=== PATIENT | male | born 1940 | race Caucasian/White ===

== ENCOUNTER 2020-09-05 16:02 | Inpatient (IN) ==
[2020-09-05] MEDS ORDERED: polyethylene glycoL 3350 17 GM POWD.PACK PO PRN (18:35)
[2020-09-05] MEDS ORDERED: QUEtiapine Fumarate 25 MG TABLET PO SCH (21:00)
[2020-09-05] MEDS: Lactobacillus 1 EACH CAP.SPRINK PO SCH (22:57)
[2020-09-05] MEDS: Magnesium Oxide 400 MG TABLET PO SCH (22:58)
[2020-09-05] MEDS: *HR* OxyCODONE Immed Rel 5 MG TABLET PO PRN (22:58)
[2020-09-05] MEDS: Piperacillin/Tazobactam 3.375 GM in 0.9 % Sodium Chloride Mini Bag 100 ML IVPB SCH (22:59)
[2020-09-05] MEDS: Melatonin 3 MG TABLET PO PRN (22:59)
[2020-09-05] MEDS: Gabapentin 300 MG CAPSULE PO SCH (22:59)
[2020-09-05] MEDS: Apixaban 5 MG TABLET PO SCH (22:59)
[2020-09-06] MEDS: Budesonide/Formoterol 80/4.5 1 PUFF INH IH SCH ×3 (00:45→23:08)
[2020-09-06 06:42] LABS: Hematocrit 28.4 % (37.5-50.1); Hemoglobin 9.2 g/dL (12.9-16.9); Mean Corpuscular HGB Conc 32.4 g/dL (31.6-35.5); Mean Corpuscular Hemoglobin 29.3 pg (28.0-33.3); Mean Corpuscular Volume 90.4 fL (83.0-100.0); Mean Platelet Volume 11.2 fL (9.4-12.4); Platelet Count 203 K/mcL (140-400); Red Blood Count 3.14 M/mcL (4.19-5.50); Red Cell Distribution Width 15.2 % (11.5-14.5)
[2020-09-06 07:05] LABS: Calcium 8.2 mg/dL (8.6-10.3); Potassium 4.2 mEq/L (3.5-5.1)
[2020-09-06] MEDS ORDERED: QUEtiapine Fumarate 25 MG TABLET PO SCH (09:00)
[2020-09-06] MEDS: Piperacillin/Tazobactam 3.375 GM in 0.9 % Sodium Chloride Mini Bag 100 ML IVPB SCH (10:23)
[2020-09-06] MEDS: Apixaban 5 MG TABLET PO SCH ×2 (10:24→22:11)
[2020-09-06] MEDS: Magnesium Oxide 400 MG TABLET PO SCH ×2 (10:25→22:12)
[2020-09-06] MEDS: Cholecalciferol (D-3) 1,000 UNIT (25MCG) TABLET PO SCH (10:25)
[2020-09-06] MEDS: Gabapentin 300 MG CAPSULE PO SCH ×3 (10:25→22:12)
[2020-09-06] MEDS: Aspirin Enteric Coated 81 MG Tablet PO SCH (10:25)
[2020-09-06] MEDS: amLODIPine 5 MG TABLET PO SCH (10:25)
[2020-09-06] MEDS: Cyanocobalamin (B-12) 1,000 MCG TABLET PO SCH (10:25)
[2020-09-06] MEDS: Lactobacillus 1 EACH CAP.SPRINK PO SCH ×2 (10:25→22:11)
[2020-09-06] MEDS: Ertapenem 1,000 MG in 0.9 % Sodium Chloride Mini Bag 100 ML IVPB SCH (16:16)
[2020-09-06] MEDS: QUEtiapine Fumarate 25 MG TABLET PO SCH (22:10)
[2020-09-06] MEDS: Dexamethasone Sodium Phos/PF 10 MG/ML VIAL IVP SCH (22:12)
[2020-09-07] MEDS: Dexamethasone Sodium Phos/PF 10 MG/ML VIAL IVP SCH (09:17)
[2020-09-07] MEDS: Gabapentin 300 MG CAPSULE PO SCH ×3 (09:18→20:04)
[2020-09-07] MEDS: Cholecalciferol (D-3) 1,000 UNIT (25MCG) TABLET PO SCH (09:18)
[2020-09-07] MEDS: Apixaban 5 MG TABLET PO SCH ×2 (09:19→20:04)
[2020-09-07] MEDS: Magnesium Oxide 400 MG TABLET PO SCH ×2 (09:19→20:04)
[2020-09-07] MEDS: Aspirin Enteric Coated 81 MG Tablet PO SCH (09:19)
[2020-09-07] MEDS: Cyanocobalamin (B-12) 1,000 MCG TABLET PO SCH (09:19)
[2020-09-07] MEDS: Lactobacillus 1 EACH CAP.SPRINK PO SCH ×2 (09:19→20:03)
[2020-09-07] MEDS: QUEtiapine Fumarate 25 MG TABLET PO SCH ×2 (09:19→20:03)
[2020-09-07] MEDS: amLODIPine 5 MG TABLET PO SCH (09:20)
[2020-09-07] MEDS: Budesonide/Formoterol 80/4.5 1 PUFF INH IH SCH ×2 (09:34→23:33)
[2020-09-07] MEDS: Ertapenem 1,000 MG in 0.9 % Sodium Chloride Mini Bag 100 ML IVPB SCH (16:21)
[2020-09-08] MEDS ORDERED: GuaiFENesin Liq 200 MG/10 ML UDC PO PRN (01:34)
[2020-09-08] MEDS: GuaiFENesin Liq 200 MG/10 ML UDC PO SCH ×4 (02:01→21:16)
[2020-09-08] MEDS: QUEtiapine Fumarate 25 MG TABLET PO SCH ×2 (09:52→21:16)
[2020-09-08] MEDS: Magnesium Oxide 400 MG TABLET PO SCH ×2 (09:52→21:15)
[2020-09-08] MEDS: Lactobacillus 1 EACH CAP.SPRINK PO SCH ×2 (09:52→21:16)
[2020-09-08] MEDS: Aspirin Enteric Coated 81 MG Tablet PO SCH ×2 (09:53→10:11)
[2020-09-08] MEDS: Gabapentin 300 MG CAPSULE PO SCH ×3 (09:53→21:16)
[2020-09-08] MEDS: Cyanocobalamin (B-12) 1,000 MCG TABLET PO SCH (09:53)
[2020-09-08] MEDS: Apixaban 5 MG TABLET PO SCH ×2 (09:53→21:15)
[2020-09-08] MEDS: Cholecalciferol (D-3) 1,000 UNIT (25MCG) TABLET PO SCH (09:53)
[2020-09-08] MEDS: amLODIPine 5 MG TABLET PO SCH (09:53)
[2020-09-08] MEDS: Dexamethasone Sodium Phos/PF 10 MG/ML VIAL IVP SCH (09:54)
[2020-09-08 10:31] LABS: Hematocrit 24.4 % (37.5-50.1); Hemoglobin 7.8 g/dL (12.9-16.9); Immature Granulocytes % 0.4 % (0-4); Lymphocytes # 0.8 K/mcL (0.6-4.6); Lymphocytes % 16.1 %; Mean Corpuscular Hemoglobin 28.8 pg (28.0-33.3); Mean Platelet Volume 11.2 fL (9.4-12.4); Monocytes # 0.3 K/mcL (0.0-1.3); Monocytes % 5.6 %; Platelet Count 226 K/mcL (140-400); Red Blood Count 2.71 M/mcL (4.19-5.50); Red Cell Distribution Width 15.3 % (11.5-14.5); Segmented Neutrophils % 77.9 %; White Blood Count 5.2 K/mcL (4.3-11.1)
[2020-09-08] MEDS: Budesonide/Formoterol 80/4.5 1 PUFF INH IH SCH ×2 (10:44→22:14)
[2020-09-08 10:45] LABS: Calcium 8.3 mg/dL (8.6-10.3)
[2020-09-08] MEDS: Ertapenem 1,000 MG in 0.9 % Sodium Chloride Mini Bag 100 ML IVPB SCH (17:05)
[2020-09-09] MEDS: Melatonin 3 MG TABLET PO PRN (01:44)
[2020-09-09] MEDS: Benzonatate 100 MG CAPSULE PO PRN ×2 (02:12→12:48)
[2020-09-09] MEDS: Budesonide/Formoterol 80/4.5 1 PUFF INH IH SCH ×2 (11:13→21:19)
[2020-09-09] MEDS: Cholecalciferol (D-3) 1,000 UNIT (25MCG) TABLET PO SCH (12:43)
[2020-09-09] MEDS: Magnesium Oxide 400 MG TABLET PO SCH ×2 (12:46→21:08)
[2020-09-09] MEDS: QUEtiapine Fumarate 25 MG TABLET PO SCH ×2 (12:46→21:08)
[2020-09-09] MEDS: Lactobacillus 1 EACH CAP.SPRINK PO SCH ×2 (12:46→21:09)
[2020-09-09] MEDS: GuaiFENesin Liq 200 MG/10 ML UDC PO SCH ×3 (12:46→21:09)
[2020-09-09] MEDS: Dexamethasone Sodium Phos/PF 10 MG/ML VIAL IVP SCH (12:46)
[2020-09-09] MEDS: Apixaban 5 MG TABLET PO SCH ×2 (12:47→21:09)
[2020-09-09] MEDS: Aspirin Enteric Coated 81 MG Tablet PO SCH (12:47)
[2020-09-09] MEDS: amLODIPine 5 MG TABLET PO SCH (12:47)
[2020-09-09] MEDS: Cyanocobalamin (B-12) 1,000 MCG TABLET PO SCH (12:48)
[2020-09-09] MEDS: Gabapentin 400 MG CAPSULE PO SCH ×2 (16:31→21:09)
[2020-09-09] MEDS: Ertapenem 1,000 MG in 0.9 % Sodium Chloride Mini Bag 100 ML IVPB SCH (16:31)
[2020-09-09] MEDS: Gabapentin 300 MG CAPSULE PO SCH (17:55)
[2020-09-09] MEDS: *HR* OxyCODONE Immed Rel 5 MG TABLET PO PRN (21:09)
[2020-09-10] MEDS: Budesonide/Formoterol 80/4.5 1 PUFF INH IH SCH ×2 (10:10→22:51)
[2020-09-10] MEDS: GuaiFENesin Liq 200 MG/10 ML UDC PO SCH ×3 (10:25→22:40)
[2020-09-10] MEDS: Aspirin Enteric Coated 81 MG Tablet PO SCH (10:26)
[2020-09-10] MEDS: Cholecalciferol (D-3) 1,000 UNIT (25MCG) TABLET PO SCH (10:27)
[2020-09-10] MEDS: amLODIPine 5 MG TABLET PO SCH (10:28)
[2020-09-10] MEDS: Lactobacillus 1 EACH CAP.SPRINK PO SCH ×2 (10:28→22:23)
[2020-09-10] MEDS: Dexamethasone Sodium Phos/PF 10 MG/ML VIAL IVP SCH (10:28)
[2020-09-10] MEDS: Gabapentin 400 MG CAPSULE PO SCH (10:28)
[2020-09-10] MEDS: Apixaban 5 MG TABLET PO SCH ×2 (10:29→22:24)
[2020-09-10] MEDS: Magnesium Oxide 400 MG TABLET PO SCH ×2 (10:29→22:23)
[2020-09-10] MEDS: QUEtiapine Fumarate 25 MG TABLET PO SCH ×2 (10:29→22:24)
[2020-09-10] MEDS: Cyanocobalamin (B-12) 1,000 MCG TABLET PO SCH (10:46)
[2020-09-10 15:27] LABS: ABG Base Excess -1 mEq/L (-2 to 3); ABG HCO3 24 mEq/L (21-27); ABG Oxygen Saturation 94 % (95-98); ABG PCO2 42 mmHg (35-45); ABG PH 7.37 pH Units (7.32-7.45); ABG PO2 73 mmHg (85-104); ABG TCO2 25 mEq/L (20-26)
[2020-09-10] MEDS: Gabapentin 100 MG CAPSULE PO SCH ×2 (17:14→22:23)
[2020-09-11] MEDS: Budesonide/Formoterol 80/4.5 1 PUFF INH IH SCH ×2 (07:54→23:42)
[2020-09-11] MEDS: Dexamethasone Sodium Phos/PF 10 MG/ML VIAL IVP SCH ×2 (09:18→12:18)
[2020-09-11] MEDS: Gabapentin 100 MG CAPSULE PO SCH ×3 (09:18→21:55)
[2020-09-11] MEDS: Lactobacillus 1 EACH CAP.SPRINK PO SCH ×2 (09:18→21:54)
[2020-09-11] MEDS: Aspirin Enteric Coated 81 MG Tablet PO SCH (09:18)
[2020-09-11] MEDS: Apixaban 5 MG TABLET PO SCH ×2 (09:18→21:55)
[2020-09-11] MEDS: amLODIPine 5 MG TABLET PO SCH (09:19)
[2020-09-11] MEDS: Cholecalciferol (D-3) 1,000 UNIT (25MCG) TABLET PO SCH (09:19)
[2020-09-11] MEDS: Magnesium Oxide 400 MG TABLET PO SCH ×2 (09:19→21:54)
[2020-09-11] MEDS: GuaiFENesin Liq 200 MG/10 ML UDC PO SCH ×3 (09:19→21:55)
[2020-09-11] MEDS: Cyanocobalamin (B-12) 1,000 MCG TABLET PO SCH (09:19)
[2020-09-11] MEDS: QUEtiapine Fumarate 25 MG TABLET PO SCH (21:55)
[2020-09-12] MEDS: *HR* OxyCODONE Immed Rel 5 MG TABLET PO PRN (04:09)
[2020-09-12] MEDS: Lactobacillus 1 EACH CAP.SPRINK PO SCH ×2 (07:59→22:23)
[2020-09-12] MEDS: Aspirin Enteric Coated 81 MG Tablet PO SCH (07:59)
[2020-09-12] MEDS: Gabapentin 100 MG CAPSULE PO SCH ×3 (08:00→22:22)
[2020-09-12] MEDS: Benzonatate 100 MG CAPSULE PO PRN (08:00)
[2020-09-12] MEDS: amLODIPine 5 MG TABLET PO SCH (08:00)
[2020-09-12] MEDS: Magnesium Oxide 400 MG TABLET PO SCH ×2 (08:00→22:23)
[2020-09-12] MEDS: Cholecalciferol (D-3) 1,000 UNIT (25MCG) TABLET PO SCH ×2 (08:00→17:11)
[2020-09-12] MEDS: Cyanocobalamin (B-12) 1,000 MCG TABLET PO SCH (08:00)
[2020-09-12] MEDS: GuaiFENesin Liq 200 MG/10 ML UDC PO SCH ×3 (08:05→22:23)
[2020-09-12] MEDS ORDERED: *HR* LORazepam 2 MG/ML VIAL IM STA (10:01)
[2020-09-12] MEDS ORDERED: *HR* LORazepam 2 MG/ML VIAL IVP ONE ×2 (10:12→16:30)
[2020-09-12] MEDS: Budesonide/Formoterol 80/4.5 1 PUFF INH IH SCH ×2 (10:17→23:14)
[2020-09-12] MEDS: Levalbuterol Neb 1.25 MG/3 ML IH PRN (10:17)
[2020-09-12] MEDS: Dexamethasone Sodium Phos/PF 10 MG/ML VIAL IVP SCH (10:27)
[2020-09-12] MEDS: Apixaban 5 MG TABLET PO SCH ×2 (10:44→22:23)
[2020-09-12 10:50] LABS: Basophils % 0.2 %; Eosinophils # 0.1 K/mcL (0.0-0.6); Eosinophils % 0.7 %; Hematocrit 29.4 % (37.5-50.1); Hemoglobin 9.2 g/dL (12.9-16.9); Immature Granulocytes % 0.9 % (0-4); Lymphocytes # 1.9 K/mcL (0.6-4.6); Lymphocytes % 21.7 %; Mean Corpuscular HGB Conc 31.3 g/dL (31.6-35.5); Mean Corpuscular Hemoglobin 28.8 pg (28.0-33.3); Mean Corpuscular Volume 92.2 fL (83.0-100.0); Mean Platelet Volume 11.2 fL (9.4-12.4); Monocytes # 0.6 K/mcL (0.0-1.3); Monocytes % 7.1 %; Neutrophils # 6.2 K/mcL (1.6-8.9); Nucleated Red Blood Cells 0.2 /100 WBC (0); Platelet Count 368 K/mcL (140-400); Red Blood Count 3.19 M/mcL (4.19-5.50); Red Cell Distribution Width 15.7 % (11.5-14.5); Segmented Neutrophils % 69.4 %; White Blood Count 8.9 K/mcL (4.3-11.1)
[2020-09-12 11:09] LABS: Calcium 9.1 mg/dL (8.6-10.3); Potassium 4.9 mEq/L (3.5-5.1)
[2020-09-12] MEDS: Azithromycin 500 MG in 0.9 % Sodium Chloride 250 ML IVPB SCH (15:15)
[2020-09-12] MEDS ORDERED: *HR* LORazepam 2 MG/ML VIAL IM ONE ×2 (16:32→20:18)
[2020-09-12] MEDS ORDERED: Lidocaine 1% 20 ML MDV IM ONE (17:30)
[2020-09-12] MEDS: QUEtiapine Fumarate 25 MG TABLET PO SCH (22:23)
[2020-09-13] MEDS: Azithromycin 500 MG in 0.9 % Sodium Chloride 250 ML IVPB SCH ×3 (01:31→22:55)
[2020-09-13] MEDS: GuaiFENesin Liq 200 MG/10 ML UDC PO SCH ×3 (09:47→21:08)
[2020-09-13] MEDS: Apixaban 5 MG TABLET PO SCH ×2 (09:48→21:07)
[2020-09-13] MEDS: amLODIPine 5 MG TABLET PO SCH (09:48)
[2020-09-13] MEDS: Gabapentin 100 MG CAPSULE PO SCH ×3 (09:48→21:07)
[2020-09-13] MEDS: Cholecalciferol (D-3) 1,000 UNIT (25MCG) TABLET PO SCH (09:53)
[2020-09-13] MEDS: Cyanocobalamin (B-12) 1,000 MCG TABLET PO SCH (09:53)
[2020-09-13] MEDS: Magnesium Oxide 400 MG TABLET PO SCH ×2 (09:53→21:07)
[2020-09-13] MEDS: Aspirin Enteric Coated 81 MG Tablet PO SCH (09:53)
[2020-09-13] MEDS: Lactobacillus 1 EACH CAP.SPRINK PO SCH ×2 (09:53→21:07)
[2020-09-13] MEDS: Budesonide/Formoterol 80/4.5 1 PUFF INH IH SCH ×2 (10:02→21:43)
[2020-09-13] MEDS: Dexamethasone Sodium Phos/PF 10 MG/ML VIAL IVP SCH (11:11)
[2020-09-13] MEDS: QUEtiapine Fumarate 25 MG TABLET PO SCH (21:07)
[2020-09-14] MEDS: GuaiFENesin Liq 200 MG/10 ML UDC PO SCH ×3 (09:44→19:27)
[2020-09-14] MEDS: Dexamethasone Sodium Phos/PF 10 MG/ML VIAL IVP SCH (09:45)
[2020-09-14] MEDS: Gabapentin 100 MG CAPSULE PO SCH ×3 (09:49→19:27)
[2020-09-14] MEDS: Lactobacillus 1 EACH CAP.SPRINK PO SCH ×2 (09:50→19:26)
[2020-09-14] MEDS: Cholecalciferol (D-3) 1,000 UNIT (25MCG) TABLET PO SCH (09:50)
[2020-09-14] MEDS: Cyanocobalamin (B-12) 1,000 MCG TABLET PO SCH (09:50)
[2020-09-14] MEDS: Apixaban 5 MG TABLET PO SCH ×2 (09:51→19:27)
[2020-09-14] MEDS: Aspirin Enteric Coated 81 MG Tablet PO SCH (09:51)
[2020-09-14] MEDS: Magnesium Oxide 400 MG TABLET PO SCH ×2 (09:51→19:27)
[2020-09-14] MEDS: amLODIPine 5 MG TABLET PO SCH (09:51)
[2020-09-14] MEDS: Budesonide/Formoterol 80/4.5 1 PUFF INH IH SCH ×2 (11:05→23:08)
[2020-09-14] MEDS: Azithromycin 500 MG in 0.9 % Sodium Chloride 250 ML IVPB SCH ×2 (12:34→22:58)
[2020-09-14] MEDS: Ertapenem 1,000 MG in 0.9 % Sodium Chloride Mini Bag 100 ML IVPB SCH (15:42)
[2020-09-14] MEDS: Melatonin 3 MG TABLET PO PRN (19:26)
[2020-09-14] MEDS: *HR* OxyCODONE Immed Rel 5 MG TABLET PO PRN (19:26)
[2020-09-14] MEDS: QUEtiapine Fumarate 25 MG TABLET PO SCH (19:27)
[2020-09-15] MEDS: GuaiFENesin Liq 200 MG/10 ML UDC PO SCH ×3 (08:06→19:49)
[2020-09-15] MEDS: Aspirin Enteric Coated 81 MG Tablet PO SCH (08:07)
[2020-09-15] MEDS: Cyanocobalamin (B-12) 1,000 MCG TABLET PO SCH (08:07)
[2020-09-15] MEDS: amLODIPine 5 MG TABLET PO SCH (08:07)
[2020-09-15] MEDS: Gabapentin 100 MG CAPSULE PO SCH ×3 (08:07→19:48)
[2020-09-15] MEDS: Cholecalciferol (D-3) 1,000 UNIT (25MCG) TABLET PO SCH (08:07)
[2020-09-15] MEDS: Lactobacillus 1 EACH CAP.SPRINK PO SCH ×2 (08:07→19:49)
[2020-09-15] MEDS: Apixaban 5 MG TABLET PO SCH ×2 (08:07→19:48)
[2020-09-15] MEDS: Magnesium Oxide 400 MG TABLET PO SCH ×2 (08:08→19:48)
[2020-09-15] MEDS: Dexamethasone Sodium Phos/PF 10 MG/ML VIAL IVP SCH (08:10)
[2020-09-15] MEDS: Budesonide/Formoterol 80/4.5 1 PUFF INH IH SCH ×2 (09:10→22:14)
[2020-09-15] MEDS: Acetaminophen 325 MG TABLET PO PRN (11:26)
[2020-09-15] MEDS: Benzonatate 100 MG CAPSULE PO PRN (11:26)
[2020-09-15] MEDS: Azithromycin 500 MG in 0.9 % Sodium Chloride 250 ML IVPB SCH (11:27)
[2020-09-15] MEDS: Ertapenem 1,000 MG in 0.9 % Sodium Chloride Mini Bag 100 ML IVPB SCH (15:03)
[2020-09-15] MEDS: QUEtiapine Fumarate 25 MG TABLET PO SCH (19:48)
[2020-09-15] MEDS: *HR* OxyCODONE Immed Rel 5 MG TABLET PO PRN (19:48)
[2020-09-15] MEDS: Melatonin 3 MG TABLET PO PRN (19:48)
[2020-09-16] MEDS: GuaiFENesin Liq 200 MG/10 ML UDC PO SCH ×3 (07:46→20:12)
[2020-09-16] MEDS: Cyanocobalamin (B-12) 1,000 MCG TABLET PO SCH (07:47)
[2020-09-16] MEDS: Apixaban 5 MG TABLET PO SCH (07:47)
[2020-09-16] MEDS: Magnesium Oxide 400 MG TABLET PO SCH ×2 (07:47→20:11)
[2020-09-16] MEDS: Gabapentin 100 MG CAPSULE PO SCH ×3 (07:47→20:11)
[2020-09-16] MEDS: amLODIPine 5 MG TABLET PO SCH (07:47)
[2020-09-16] MEDS: Aspirin Enteric Coated 81 MG Tablet PO SCH (07:47)
[2020-09-16] MEDS: Cholecalciferol (D-3) 1,000 UNIT (25MCG) TABLET PO SCH (07:48)
[2020-09-16] MEDS: Lactobacillus 1 EACH CAP.SPRINK PO SCH ×2 (07:48→20:11)
[2020-09-16] MEDS: Budesonide/Formoterol 80/4.5 1 PUFF INH IH SCH ×2 (09:29→21:12)
[2020-09-16] MEDS: Azithromycin 250 MG TABLET PO SCH (13:10)
[2020-09-16] MEDS: Ertapenem 1,000 MG in 0.9 % Sodium Chloride Mini Bag 100 ML IVPB SCH (13:27)
[2020-09-16] MEDS: QUEtiapine Fumarate 25 MG TABLET PO SCH (20:12)
[2020-09-17] MEDS: Apixaban 5 MG TABLET PO SCH ×3 (04:52→21:36)
[2020-09-17 07:33] LABS: Hematocrit 26.1 % (37.5-50.1); Hemoglobin 8.1 g/dL (12.9-16.9); Mean Corpuscular Hemoglobin 28.6 pg (28.0-33.3); Mean Corpuscular Volume 92.2 fL (83.0-100.0); Mean Platelet Volume 10.8 fL (9.4-12.4); Platelet Count 337 K/mcL (140-400); Red Blood Count 2.83 M/mcL (4.19-5.50); Red Cell Distribution Width 15.5 % (11.5-14.5); White Blood Count 10.5 K/mcL (4.3-11.1)
[2020-09-17 07:53] LABS: Calcium 8.8 mg/dL (8.6-10.3); Potassium 4.7 mEq/L (3.5-5.1)
[2020-09-17] MEDS: Aspirin Enteric Coated 81 MG Tablet PO SCH (08:12)
[2020-09-17] MEDS: GuaiFENesin Liq 200 MG/10 ML UDC PO SCH ×3 (08:13→21:37)
[2020-09-17] MEDS: Lactobacillus 1 EACH CAP.SPRINK PO SCH ×2 (08:13→21:36)
[2020-09-17] MEDS: Gabapentin 100 MG CAPSULE PO SCH ×3 (08:13→21:36)
[2020-09-17] MEDS: Magnesium Oxide 400 MG TABLET PO SCH ×2 (08:13→21:36)
[2020-09-17] MEDS: Cholecalciferol (D-3) 1,000 UNIT (25MCG) TABLET PO SCH (08:13)
[2020-09-17] MEDS: amLODIPine 5 MG TABLET PO SCH (08:13)
[2020-09-17] MEDS: Cyanocobalamin (B-12) 1,000 MCG TABLET PO SCH (08:14)
[2020-09-17] MEDS: Budesonide/Formoterol 80/4.5 1 PUFF INH IH SCH ×2 (10:27→20:46)
[2020-09-17] MEDS: Azithromycin 250 MG TABLET PO SCH (14:18)
[2020-09-17] MEDS: Ertapenem 1,000 MG in 0.9 % Sodium Chloride Mini Bag 100 ML IVPB SCH (14:18)
[2020-09-17] MEDS: Melatonin 3 MG TABLET PO PRN (21:37)
[2020-09-17] MEDS: QUEtiapine Fumarate 25 MG TABLET PO SCH (21:38)
[2020-09-18] MEDS: Benzonatate 100 MG CAPSULE PO PRN ×2 (03:19→20:21)
[2020-09-18] MEDS: Gabapentin 100 MG CAPSULE PO SCH ×3 (09:09→20:20)
[2020-09-18] MEDS: Cholecalciferol (D-3) 1,000 UNIT (25MCG) TABLET PO SCH (09:09)
[2020-09-18] MEDS: Cyanocobalamin (B-12) 1,000 MCG TABLET PO SCH (09:09)
[2020-09-18] MEDS: Magnesium Oxide 400 MG TABLET PO SCH ×3 (09:10→20:20)
[2020-09-18] MEDS: Aspirin Enteric Coated 81 MG Tablet PO SCH (09:10)
[2020-09-18] MEDS: GuaiFENesin Liq 200 MG/10 ML UDC PO SCH ×3 (09:10→20:20)
[2020-09-18] MEDS: Apixaban 5 MG TABLET PO SCH ×2 (09:11→20:21)
[2020-09-18] MEDS: Lactobacillus 1 EACH CAP.SPRINK PO SCH ×2 (09:11→20:20)
[2020-09-18] MEDS ORDERED: 0.9 % Sodium Chloride 1,000 ML IVC SCH ×2 (09:30→19:08)
[2020-09-18] MEDS: Budesonide/Formoterol 80/4.5 1 PUFF INH IH SCH ×2 (10:46→22:55)
[2020-09-18] MEDS: Azithromycin 250 MG TABLET PO SCH (11:46)
[2020-09-18] MEDS: amLODIPine 5 MG TABLET PO SCH (11:49)
[2020-09-18] MEDS: Ertapenem 1,000 MG in 0.9 % Sodium Chloride Mini Bag 100 ML IVPB SCH (13:57)
[2020-09-18] MEDS: Melatonin 3 MG TABLET PO PRN (20:20)
[2020-09-18] MEDS: QUEtiapine Fumarate 25 MG TABLET PO SCH (20:21)
[2020-09-19] MEDS: Levalbuterol Neb 1.25 MG/3 ML IH PRN (01:34)
[2020-09-19] MEDS ORDERED: Furosemide 20 MG/2 ML VIAL IVP ONE (03:17)
[2020-09-19] MEDS: Magnesium Oxide 400 MG TABLET PO SCH ×2 (08:30→20:07)
[2020-09-19] MEDS: Gabapentin 100 MG CAPSULE PO SCH ×3 (08:30→20:07)
[2020-09-19] MEDS: Cyanocobalamin (B-12) 1,000 MCG TABLET PO SCH (08:30)
[2020-09-19] MEDS: Apixaban 5 MG TABLET PO SCH ×2 (08:30→20:07)
[2020-09-19] MEDS: Lactobacillus 1 EACH CAP.SPRINK PO SCH ×2 (08:30→20:07)
[2020-09-19] MEDS: Aspirin Enteric Coated 81 MG Tablet PO SCH (08:30)
[2020-09-19] MEDS: GuaiFENesin Liq 200 MG/10 ML UDC PO SCH ×3 (08:31→20:07)
[2020-09-19] MEDS: Cholecalciferol (D-3) 1,000 UNIT (25MCG) TABLET PO SCH (08:31)
[2020-09-19] MEDS: Budesonide/Formoterol 80/4.5 1 PUFF INH IH SCH ×2 (10:17→22:08)
[2020-09-19] MEDS: Azithromycin 250 MG TABLET PO SCH (12:46)
[2020-09-19] MEDS: Ertapenem 1,000 MG in 0.9 % Sodium Chloride Mini Bag 100 ML IVPB SCH (14:50)
[2020-09-19] MEDS: QUEtiapine Fumarate 25 MG TABLET PO SCH (20:07)
[2020-09-20 06:12] LABS: Basophils % 0.2 %; Eosinophils # 0.1 K/mcL (0.0-0.6); Eosinophils % 1.1 %; Hemoglobin 8.1 g/dL (12.9-16.9); Immature Granulocytes % 1.2 % (0-4); Lymphocytes % 21.2 %; Mean Corpuscular HGB Conc 31.2 g/dL (31.6-35.5); Mean Corpuscular Hemoglobin 28.8 pg (28.0-33.3); Mean Corpuscular Volume 92.5 fL (83.0-100.0); Mean Platelet Volume 11.4 fL (9.4-12.4); Monocytes # 0.9 K/mcL (0.0-1.3); Monocytes % 9.5 %; Neutrophils # 6.2 K/mcL (1.6-8.9); Platelet Count 251 K/mcL (140-400); Red Blood Count 2.81 M/mcL (4.19-5.50); Red Cell Distribution Width 15.5 % (11.5-14.5); Segmented Neutrophils % 66.8 %; White Blood Count 9.3 K/mcL (4.3-11.1)
[2020-09-20 06:38] LABS: Albumin 2.6 g/dL (3.5-5.7); Albumin/Globulin Ratio 0.8 (1.1-2.2); Bilirubin,Total 0.4 mg/dL (0.3-1.0); Calcium 8.2 mg/dL (8.6-10.3); Globulin 3.3 g/dL (2.4-3.5); Potassium 4.5 mEq/L (3.5-5.1); Total Protein 5.9 g/dL (6.4-8.9)
[2020-09-20] MEDS: Cyanocobalamin (B-12) 1,000 MCG TABLET PO SCH (08:17)
[2020-09-20] MEDS: GuaiFENesin Liq 200 MG/10 ML UDC PO SCH ×3 (08:17→19:42)
[2020-09-20] MEDS: Aspirin Enteric Coated 81 MG Tablet PO SCH (08:18)
[2020-09-20] MEDS: Magnesium Oxide 400 MG TABLET PO SCH ×2 (08:18→19:42)
[2020-09-20] MEDS: Cholecalciferol (D-3) 1,000 UNIT (25MCG) TABLET PO SCH (08:22)
[2020-09-20] MEDS: Apixaban 5 MG TABLET PO SCH ×2 (08:22→19:41)
[2020-09-20] MEDS: Lactobacillus 1 EACH CAP.SPRINK PO SCH ×2 (08:22→19:41)
[2020-09-20] MEDS: Gabapentin 100 MG CAPSULE PO SCH ×3 (08:22→19:42)
[2020-09-20] MEDS: Budesonide/Formoterol 80/4.5 1 PUFF INH IH SCH ×2 (09:04→21:42)
[2020-09-20] MEDS: Ertapenem 1,000 MG in 0.9 % Sodium Chloride Mini Bag 100 ML IVPB SCH (16:16)
[2020-09-20] MEDS: QUEtiapine Fumarate 25 MG TABLET PO SCH (19:41)
[2020-09-20] MEDS: Melatonin 3 MG TABLET PO PRN (19:42)
[2020-09-21] MEDS: Benzonatate 100 MG CAPSULE PO PRN (04:06)
[2020-09-21] MEDS: Acetaminophen 325 MG TABLET PO PRN ×2 (04:06→20:39)
[2020-09-21] MEDS: Budesonide/Formoterol 80/4.5 1 PUFF INH IH SCH ×2 (09:21→22:06)
[2020-09-21] MEDS: Aspirin Enteric Coated 81 MG Tablet PO SCH (09:22)
[2020-09-21] MEDS: Magnesium Oxide 400 MG TABLET PO SCH ×2 (09:22→20:39)
[2020-09-21] MEDS: Cyanocobalamin (B-12) 1,000 MCG TABLET PO SCH (09:22)
[2020-09-21] MEDS: Cholecalciferol (D-3) 1,000 UNIT (25MCG) TABLET PO SCH (09:22)
[2020-09-21] MEDS: GuaiFENesin Liq 200 MG/10 ML UDC PO SCH ×3 (09:22→20:40)
[2020-09-21] MEDS: Gabapentin 100 MG CAPSULE PO SCH ×3 (09:25→20:40)
[2020-09-21] MEDS: Lactobacillus 1 EACH CAP.SPRINK PO SCH ×2 (09:25→20:39)
[2020-09-21] MEDS: Apixaban 5 MG TABLET PO SCH ×2 (09:25→20:39)
[2020-09-21] MEDS: Ertapenem 1,000 MG in 0.9 % Sodium Chloride Mini Bag 100 ML IVPB SCH (15:03)
[2020-09-21] MEDS: Melatonin 3 MG TABLET PO PRN (20:39)
[2020-09-21] MEDS: QUEtiapine Fumarate 25 MG TABLET PO SCH (20:39)
[2020-09-22] MEDS: Apixaban 5 MG TABLET PO SCH ×2 (08:11→20:28)
[2020-09-22] MEDS: Lactobacillus 1 EACH CAP.SPRINK PO SCH ×2 (08:12→20:28)
[2020-09-22] MEDS: Gabapentin 100 MG CAPSULE PO SCH ×3 (08:12→20:28)
[2020-09-22] MEDS: Magnesium Oxide 400 MG TABLET PO SCH ×2 (08:12→20:28)
[2020-09-22] MEDS: Cholecalciferol (D-3) 1,000 UNIT (25MCG) TABLET PO SCH (08:12)
[2020-09-22] MEDS: Cyanocobalamin (B-12) 1,000 MCG TABLET PO SCH (08:12)
[2020-09-22] MEDS: GuaiFENesin Liq 200 MG/10 ML UDC PO SCH ×3 (08:12→20:28)
[2020-09-22] MEDS: Aspirin Enteric Coated 81 MG Tablet PO SCH (08:12)
[2020-09-22] MEDS: Budesonide/Formoterol 80/4.5 1 PUFF INH IH SCH ×2 (10:30→21:13)
[2020-09-22] MEDS: Ertapenem 1,000 MG in 0.9 % Sodium Chloride Mini Bag 100 ML IVPB SCH (16:56)
[2020-09-22] MEDS: QUEtiapine Fumarate 25 MG TABLET PO SCH (20:28)
[2020-09-22] MEDS: Melatonin 3 MG TABLET PO PRN (20:28)
[2020-09-23] MEDS: Gabapentin 100 MG CAPSULE PO SCH ×3 (08:58→20:03)
[2020-09-23] MEDS: Apixaban 5 MG TABLET PO SCH ×2 (08:58→20:03)
[2020-09-23] MEDS: Magnesium Oxide 400 MG TABLET PO SCH ×2 (08:58→20:03)
[2020-09-23] MEDS: GuaiFENesin Liq 200 MG/10 ML UDC PO SCH ×3 (08:58→20:04)
[2020-09-23] MEDS: Lactobacillus 1 EACH CAP.SPRINK PO SCH ×2 (08:58→20:03)
[2020-09-23] MEDS: Cholecalciferol (D-3) 1,000 UNIT (25MCG) TABLET PO SCH (08:58)
[2020-09-23] MEDS: Aspirin Enteric Coated 81 MG Tablet PO SCH (08:58)
[2020-09-23] MEDS: Cyanocobalamin (B-12) 1,000 MCG TABLET PO SCH (08:58)
[2020-09-23] MEDS: Budesonide/Formoterol 80/4.5 1 PUFF INH IH SCH ×2 (10:32→20:46)
[2020-09-23] MEDS: Ertapenem 1,000 MG in 0.9 % Sodium Chloride Mini Bag 100 ML IVPB SCH (14:59)
[2020-09-23] MEDS: QUEtiapine Fumarate 25 MG TABLET PO SCH (20:03)
[2020-09-23] MEDS: Melatonin 3 MG TABLET PO PRN (20:03)
[2020-09-24] MEDS: Gabapentin 100 MG CAPSULE PO SCH ×3 (08:17→19:32)
[2020-09-24] MEDS: Lactobacillus 1 EACH CAP.SPRINK PO SCH ×2 (08:17→19:32)
[2020-09-24] MEDS: Cyanocobalamin (B-12) 1,000 MCG TABLET PO SCH (08:17)
[2020-09-24] MEDS: Aspirin Enteric Coated 81 MG Tablet PO SCH (08:17)
[2020-09-24] MEDS: Apixaban 5 MG TABLET PO SCH ×2 (08:18→19:32)
[2020-09-24] MEDS: Cholecalciferol (D-3) 1,000 UNIT (25MCG) TABLET PO SCH (08:18)
[2020-09-24] MEDS: Magnesium Oxide 400 MG TABLET PO SCH ×2 (08:18→19:32)
[2020-09-24] MEDS: GuaiFENesin Liq 200 MG/10 ML UDC PO SCH ×3 (08:18→19:33)
[2020-09-24] MEDS: Budesonide/Formoterol 80/4.5 1 PUFF INH IH SCH ×2 (09:05→20:52)
[2020-09-24] MEDS: Ertapenem 1,000 MG in 0.9 % Sodium Chloride Mini Bag 100 ML IVPB SCH (14:18)
[2020-09-24] MEDS: Benzonatate 100 MG CAPSULE PO PRN (16:50)
[2020-09-24] MEDS: QUEtiapine Fumarate 25 MG TABLET PO SCH (19:33)
[2020-09-24] MEDS: Melatonin 3 MG TABLET PO PRN (20:49)
[2020-09-25] MEDS: Budesonide/Formoterol 80/4.5 1 PUFF INH IH SCH ×2 (08:46→22:33)
[2020-09-25] MEDS: GuaiFENesin Liq 200 MG/10 ML UDC PO SCH ×3 (10:02→20:33)
[2020-09-25] MEDS: Aspirin Enteric Coated 81 MG Tablet PO SCH (10:03)
[2020-09-25] MEDS: Cyanocobalamin (B-12) 1,000 MCG TABLET PO SCH (10:03)
[2020-09-25] MEDS: Lactobacillus 1 EACH CAP.SPRINK PO SCH ×2 (10:03→20:33)
[2020-09-25] MEDS: Cholecalciferol (D-3) 1,000 UNIT (25MCG) TABLET PO SCH (10:03)
[2020-09-25] MEDS: Gabapentin 100 MG CAPSULE PO SCH ×3 (10:03→20:33)
[2020-09-25] MEDS: Apixaban 5 MG TABLET PO SCH ×2 (10:03→20:33)
[2020-09-25] MEDS: Magnesium Oxide 400 MG TABLET PO SCH ×2 (10:03→20:33)
[2020-09-25] MEDS: Ertapenem 1,000 MG in 0.9 % Sodium Chloride Mini Bag 100 ML IVPB SCH (14:20)
[2020-09-25] MEDS: Melatonin 3 MG TABLET PO PRN (20:32)
[2020-09-25] MEDS: QUEtiapine Fumarate 25 MG TABLET PO SCH (20:33)
[2020-09-26 07:20] LABS: Basophils % 0.4 %; Eosinophils # 0.1 K/mcL (0.0-0.6); Eosinophils % 2.4 %; Hematocrit 26.5 % (37.5-50.1); Hemoglobin 7.9 g/dL (12.9-16.9); Immature Granulocytes % 0.8 % (0-4); Lymphocytes # 1.6 K/mcL (0.6-4.6); Mean Corpuscular HGB Conc 29.8 g/dL (31.6-35.5); Mean Corpuscular Hemoglobin 28.3 pg (28.0-33.3); Mean Platelet Volume 11.2 fL (9.4-12.4); Monocytes # 0.4 K/mcL (0.0-1.3); Monocytes % 8.6 %; Neutrophils # 2.9 K/mcL (1.6-8.9); Platelet Count 170 K/mcL (140-400); Red Blood Count 2.79 M/mcL (4.19-5.50); Red Cell Distribution Width 15.2 % (11.5-14.5); Segmented Neutrophils % 56.8 %; White Blood Count 5.1 K/mcL (4.3-11.1)
[2020-09-26 07:35] LABS: Calcium 8.7 mg/dL (8.6-10.3); Potassium 4.6 mEq/L (3.5-5.1)
[2020-09-26] MEDS: Aspirin Enteric Coated 81 MG Tablet PO SCH (08:20)
[2020-09-26] MEDS: Lactobacillus 1 EACH CAP.SPRINK PO SCH ×2 (08:21→19:37)
[2020-09-26] MEDS: Cyanocobalamin (B-12) 1,000 MCG TABLET PO SCH (08:21)
[2020-09-26] MEDS: Gabapentin 100 MG CAPSULE PO SCH ×3 (08:21→19:38)
[2020-09-26] MEDS: GuaiFENesin Liq 200 MG/10 ML UDC PO SCH ×3 (08:21→19:39)
[2020-09-26] MEDS: Magnesium Oxide 400 MG TABLET PO SCH ×2 (08:21→19:37)
[2020-09-26] MEDS: Apixaban 5 MG TABLET PO SCH ×2 (08:21→19:38)
[2020-09-26] MEDS: Cholecalciferol (D-3) 1,000 UNIT (25MCG) TABLET PO SCH (08:21)
[2020-09-26] MEDS: Budesonide/Formoterol 80/4.5 1 PUFF INH IH SCH ×2 (09:08→22:45)
[2020-09-26] MEDS: Ertapenem 1,000 MG in 0.9 % Sodium Chloride Mini Bag 100 ML IVPB SCH (16:44)
[2020-09-26] MEDS: QUEtiapine Fumarate 25 MG TABLET PO SCH (19:38)
[2020-09-26] MEDS: Melatonin 3 MG TABLET PO PRN (19:39)
[2020-09-27] MEDS: GuaiFENesin Liq 200 MG/10 ML UDC PO SCH ×3 (09:04→20:24)
[2020-09-27] MEDS: Gabapentin 100 MG CAPSULE PO SCH ×3 (09:04→20:24)
[2020-09-27] MEDS: Cholecalciferol (D-3) 1,000 UNIT (25MCG) TABLET PO SCH (09:04)
[2020-09-27] MEDS: Apixaban 5 MG TABLET PO SCH ×2 (09:04→20:24)
[2020-09-27] MEDS: Cyanocobalamin (B-12) 1,000 MCG TABLET PO SCH (09:04)
[2020-09-27] MEDS: Aspirin Enteric Coated 81 MG Tablet PO SCH (09:04)
[2020-09-27] MEDS: Magnesium Oxide 400 MG TABLET PO SCH ×2 (09:05→20:23)
[2020-09-27] MEDS: Lactobacillus 1 EACH CAP.SPRINK PO SCH ×2 (09:05→20:24)
[2020-09-27] MEDS: Budesonide/Formoterol 80/4.5 1 PUFF INH IH SCH ×2 (10:09→20:56)
[2020-09-27 12:32] LABS: % Iron Saturation 15 % (20-55); Iron 31 mcg/dL (65-175); Transferrin 148 mg/dL (203-362)
[2020-09-27 12:54] LABS: Folate 7.9 ng/mL (3.0-16.0)
[2020-09-27] MEDS: Ertapenem 1,000 MG in 0.9 % Sodium Chloride Mini Bag 100 ML IVPB SCH (14:44)
[2020-09-27] MEDS: Melatonin 3 MG TABLET PO PRN (20:24)
[2020-09-27] MEDS: QUEtiapine Fumarate 25 MG TABLET PO SCH (20:24)
[2020-09-28] MEDS: Cyanocobalamin (B-12) 1,000 MCG TABLET PO SCH (09:51)
[2020-09-28] MEDS: Lactobacillus 1 EACH CAP.SPRINK PO SCH ×2 (09:51→21:03)
[2020-09-28] MEDS: Magnesium Oxide 400 MG TABLET PO SCH ×2 (09:51→21:03)
[2020-09-28] MEDS: Apixaban 5 MG TABLET PO SCH ×2 (09:51→21:04)
[2020-09-28] MEDS: Aspirin Enteric Coated 81 MG Tablet PO SCH (09:51)
[2020-09-28] MEDS: GuaiFENesin Liq 200 MG/10 ML UDC PO SCH ×3 (09:52→21:04)
[2020-09-28] MEDS: Cholecalciferol (D-3) 1,000 UNIT (25MCG) TABLET PO SCH (09:52)
[2020-09-28] MEDS: Gabapentin 100 MG CAPSULE PO SCH ×3 (09:52→21:04)
[2020-09-28] MEDS: Budesonide/Formoterol 80/4.5 1 PUFF INH IH SCH ×2 (10:26→22:25)
[2020-09-28] MEDS: Melatonin 3 MG TABLET PO PRN (21:03)
[2020-09-28] MEDS: QUEtiapine Fumarate 25 MG TABLET PO SCH (21:04)
[2020-09-29] MEDS: Cyanocobalamin (B-12) 1,000 MCG TABLET PO SCH (08:21)
[2020-09-29] MEDS: Apixaban 5 MG TABLET PO SCH ×2 (08:21→20:41)
[2020-09-29] MEDS: Gabapentin 100 MG CAPSULE PO SCH ×3 (08:21→20:42)
[2020-09-29] MEDS: Aspirin Enteric Coated 81 MG Tablet PO SCH (08:21)
[2020-09-29] MEDS: Cholecalciferol (D-3) 1,000 UNIT (25MCG) TABLET PO SCH (08:22)
[2020-09-29] MEDS: GuaiFENesin Liq 200 MG/10 ML UDC PO SCH (08:22)
[2020-09-29] MEDS: Magnesium Oxide 400 MG TABLET PO SCH ×2 (08:22→20:41)
[2020-09-29] MEDS: Lactobacillus 1 EACH CAP.SPRINK PO SCH ×2 (08:22→20:41)
[2020-09-29] MEDS: Budesonide/Formoterol 80/4.5 1 PUFF INH IH SCH ×2 (09:25→22:17)
[2020-09-29] MEDS: Ertapenem 1,000 MG in 0.9 % Sodium Chloride Mini Bag 100 ML IVPB SCH ×2 (13:37→15:17)
[2020-09-29] MEDS: Ondansetron ODT 4 MG TAB.RAPDIS SL PRN (15:17)
[2020-09-29] MEDS: QUEtiapine Fumarate 25 MG TABLET PO SCH (20:41)
[2020-09-29] MEDS: Melatonin 3 MG TABLET PO PRN (20:42)
[2020-09-30] MEDS: Budesonide/Formoterol 80/4.5 1 PUFF INH IH SCH ×2 (09:11→22:08)
[2020-09-30] MEDS: Cyanocobalamin (B-12) 1,000 MCG TABLET PO SCH (09:19)
[2020-09-30] MEDS: Magnesium Oxide 400 MG TABLET PO SCH ×2 (09:19→21:48)
[2020-09-30] MEDS: Aspirin Enteric Coated 81 MG Tablet PO SCH (09:19)
[2020-09-30] MEDS: Apixaban 5 MG TABLET PO SCH ×2 (09:19→21:49)
[2020-09-30] MEDS: Gabapentin 100 MG CAPSULE PO SCH ×3 (09:19→21:49)
[2020-09-30] MEDS: Cholecalciferol (D-3) 1,000 UNIT (25MCG) TABLET PO SCH (09:19)
[2020-09-30] MEDS: Lactobacillus 1 EACH CAP.SPRINK PO SCH ×2 (09:19→21:48)
[2020-09-30] MEDS: Ertapenem 1,000 MG in 0.9 % Sodium Chloride Mini Bag 100 ML IVPB SCH (15:40)
[2020-09-30] MEDS: QUEtiapine Fumarate 25 MG TABLET PO SCH (21:49)
[2020-09-30] MEDS: Melatonin 3 MG TABLET PO PRN (21:49)
[2020-10-01] MEDS: Cyanocobalamin (B-12) 1,000 MCG TABLET PO SCH (08:22)
[2020-10-01] MEDS: Aspirin Enteric Coated 81 MG Tablet PO SCH (08:22)
[2020-10-01] MEDS: Magnesium Oxide 400 MG TABLET PO SCH ×2 (08:22→20:32)
[2020-10-01] MEDS: Cholecalciferol (D-3) 1,000 UNIT (25MCG) TABLET PO SCH (08:22)
[2020-10-01] MEDS: Apixaban 5 MG TABLET PO SCH ×2 (08:22→20:34)
[2020-10-01] MEDS: Gabapentin 100 MG CAPSULE PO SCH ×3 (08:22→20:34)
[2020-10-01] MEDS: Lactobacillus 1 EACH CAP.SPRINK PO SCH ×2 (08:22→20:34)
[2020-10-01] MEDS: Budesonide/Formoterol 80/4.5 1 PUFF INH IH SCH ×2 (11:00→21:14)
[2020-10-01] MEDS: Ertapenem 1,000 MG in 0.9 % Sodium Chloride Mini Bag 100 ML IVPB SCH (17:05)
[2020-10-01] MEDS: Melatonin 3 MG TABLET PO PRN (20:32)
[2020-10-01] MEDS: QUEtiapine Fumarate 25 MG TABLET PO SCH (20:35)
[2020-10-02] MEDS: Gabapentin 100 MG CAPSULE PO SCH ×3 (09:58→20:29)
[2020-10-02] MEDS: Aspirin Enteric Coated 81 MG Tablet PO SCH (09:58)
[2020-10-02] MEDS: Lactobacillus 1 EACH CAP.SPRINK PO SCH ×2 (09:58→20:29)
[2020-10-02] MEDS: Magnesium Oxide 400 MG TABLET PO SCH ×2 (09:58→20:29)
[2020-10-02] MEDS: Apixaban 5 MG TABLET PO SCH ×2 (09:59→20:29)
[2020-10-02] MEDS: Cyanocobalamin (B-12) 1,000 MCG TABLET PO SCH (09:59)
[2020-10-02] MEDS: Budesonide/Formoterol 80/4.5 1 PUFF INH IH SCH ×2 (10:13→20:48)
[2020-10-02] MEDS: Cholecalciferol (D-3) 1,000 UNIT (25MCG) TABLET PO SCH (12:08)
[2020-10-02] MEDS: Ertapenem 1,000 MG in 0.9 % Sodium Chloride Mini Bag 100 ML IVPB SCH (15:35)
[2020-10-02] MEDS: Acetaminophen 325 MG TABLET PO PRN (20:28)
[2020-10-02] MEDS: QUEtiapine Fumarate 25 MG TABLET PO SCH (20:28)
[2020-10-02] MEDS: Melatonin 3 MG TABLET PO PRN (20:29)
[2020-10-03] MEDS: Gabapentin 100 MG CAPSULE PO SCH ×3 (08:07→20:52)
[2020-10-03] MEDS: Magnesium Oxide 400 MG TABLET PO SCH ×2 (08:07→21:03)
[2020-10-03] MEDS: Aspirin Enteric Coated 81 MG Tablet PO SCH (08:07)
[2020-10-03] MEDS: Lactobacillus 1 EACH CAP.SPRINK PO SCH ×2 (08:07→21:03)
[2020-10-03] MEDS: Apixaban 5 MG TABLET PO SCH ×2 (08:07→20:52)
[2020-10-03] MEDS: Cholecalciferol (D-3) 1,000 UNIT (25MCG) TABLET PO SCH (08:07)
[2020-10-03] MEDS: Cyanocobalamin (B-12) 1,000 MCG TABLET PO SCH (08:07)
[2020-10-03] MEDS: Budesonide/Formoterol 80/4.5 1 PUFF INH IH SCH ×2 (09:56→20:30)
[2020-10-03] MEDS: Ertapenem 1,000 MG in 0.9 % Sodium Chloride Mini Bag 100 ML IVPB SCH (14:42)
[2020-10-03] MEDS: QUEtiapine Fumarate 25 MG TABLET PO SCH (20:52)
[2020-10-03] MEDS: Melatonin 3 MG TABLET PO PRN (20:52)
[2020-10-04] MEDS: Aspirin Enteric Coated 81 MG Tablet PO SCH (08:05)
[2020-10-04] MEDS: Lactobacillus 1 EACH CAP.SPRINK PO SCH ×2 (08:05→21:03)
[2020-10-04] MEDS: Gabapentin 100 MG CAPSULE PO SCH ×3 (08:05→22:03)
[2020-10-04] MEDS: Magnesium Oxide 400 MG TABLET PO SCH ×2 (08:05→21:03)
[2020-10-04] MEDS: Apixaban 5 MG TABLET PO SCH ×2 (08:06→22:04)
[2020-10-04] MEDS: Cyanocobalamin (B-12) 1,000 MCG TABLET PO SCH (08:06)
[2020-10-04] MEDS: Cholecalciferol (D-3) 1,000 UNIT (25MCG) TABLET PO SCH (08:16)
[2020-10-04] MEDS: Budesonide/Formoterol 80/4.5 1 PUFF INH IH SCH ×2 (09:39→22:17)
[2020-10-04] MEDS: Ertapenem 1,000 MG in 0.9 % Sodium Chloride Mini Bag 100 ML IVPB SCH (15:51)
[2020-10-04] MEDS: Melatonin 3 MG TABLET PO PRN (22:03)
[2020-10-04] MEDS: QUEtiapine Fumarate 25 MG TABLET PO SCH (22:04)
[2020-10-05] MEDS: Budesonide/Formoterol 80/4.5 1 PUFF INH IH SCH ×2 (09:35→22:12)
[2020-10-05] MEDS: Cholecalciferol (D-3) 1,000 UNIT (25MCG) TABLET PO SCH (10:14)
[2020-10-05] MEDS: Lactobacillus 1 EACH CAP.SPRINK PO SCH ×2 (10:14→21:54)
[2020-10-05] MEDS: Aspirin Enteric Coated 81 MG Tablet PO SCH (10:14)
[2020-10-05] MEDS: Gabapentin 100 MG CAPSULE PO SCH ×3 (10:15→21:51)
[2020-10-05] MEDS: Cyanocobalamin (B-12) 1,000 MCG TABLET PO SCH (10:15)
[2020-10-05] MEDS: Magnesium Oxide 400 MG TABLET PO SCH ×2 (10:15→21:54)
[2020-10-05] MEDS: Apixaban 5 MG TABLET PO SCH ×2 (10:15→21:51)
[2020-10-05] MEDS: Ertapenem 1,000 MG in 0.9 % Sodium Chloride Mini Bag 100 ML IVPB SCH (19:37)
[2020-10-05] MEDS: Melatonin 3 MG TABLET PO PRN (21:51)
[2020-10-05] MEDS: QUEtiapine Fumarate 25 MG TABLET PO SCH (21:51)
[2020-10-06 06:54] LABS: Basophils % 0.3 %; Eosinophils # 0.3 K/mcL (0.0-0.6); Eosinophils % 5.2 %; Hematocrit 24.2 % (37.5-50.1); Hemoglobin 7.4 g/dL (12.9-16.9); Immature Granulocytes % 0.6 % (0-4); Lymphocytes # 3.1 K/mcL (0.6-4.6); Lymphocytes % 46.7 %; Mean Corpuscular HGB Conc 30.6 g/dL (31.6-35.5); Mean Corpuscular Hemoglobin 28.4 pg (28.0-33.3); Mean Corpuscular Volume 92.7 fL (83.0-100.0); Mean Platelet Volume 11.1 fL (9.4-12.4); Monocytes # 0.5 K/mcL (0.0-1.3); Monocytes % 7.9 %; Neutrophils # 2.6 K/mcL (1.6-8.9); Platelet Count 251 K/mcL (140-400); Red Blood Count 2.61 M/mcL (4.19-5.50); Red Cell Distribution Width 16.1 % (11.5-14.5); Segmented Neutrophils % 39.3 %; White Blood Count 6.6 K/mcL (4.3-11.1)
[2020-10-06 07:17] LABS: Calcium 8.8 mg/dL (8.6-10.3); Potassium 4.2 mEq/L (3.5-5.1)
[2020-10-06] MEDS: Cyanocobalamin (B-12) 1,000 MCG TABLET PO SCH (10:57)
[2020-10-06] MEDS: Gabapentin 100 MG CAPSULE PO SCH ×3 (10:58→20:22)
[2020-10-06] MEDS: Aspirin Enteric Coated 81 MG Tablet PO SCH (10:58)
[2020-10-06] MEDS: Lactobacillus 1 EACH CAP.SPRINK PO SCH ×2 (10:58→20:23)
[2020-10-06] MEDS: Cholecalciferol (D-3) 1,000 UNIT (25MCG) TABLET PO SCH (10:58)
[2020-10-06] MEDS: Apixaban 5 MG TABLET PO SCH ×2 (10:58→20:22)
[2020-10-06] MEDS: Magnesium Oxide 400 MG TABLET PO SCH ×2 (10:59→20:22)
[2020-10-06] MEDS: Budesonide/Formoterol 80/4.5 1 PUFF INH IH SCH ×2 (11:23→21:05)
[2020-10-06] MEDS ORDERED: 0.9 % Sodium Chloride 250 ML IVC SCH (15:15)
[2020-10-06] MEDS: Ertapenem 1,000 MG in 0.9 % Sodium Chloride Mini Bag 100 ML IVPB SCH (15:50)
[2020-10-06] MEDS: Acetaminophen 325 MG TABLET PO PRN (15:51)
[2020-10-06] MEDS: QUEtiapine Fumarate 25 MG TABLET PO SCH (20:22)
[2020-10-06] MEDS: Melatonin 3 MG TABLET PO PRN (20:23)
[2020-10-06 22:40] LABS: Hematocrit 27.3 % (37.5-50.1); Hemoglobin 8.9 g/dL (12.9-16.9)
[2020-10-07] MEDS: Apixaban 5 MG TABLET PO SCH ×2 (08:45→20:58)
[2020-10-07] MEDS: Cholecalciferol (D-3) 1,000 UNIT (25MCG) TABLET PO SCH (08:45)
[2020-10-07] MEDS: Magnesium Oxide 400 MG TABLET PO SCH ×2 (08:45→20:59)
[2020-10-07] MEDS: Lactobacillus 1 EACH CAP.SPRINK PO SCH ×2 (08:45→20:59)
[2020-10-07] MEDS: Gabapentin 100 MG CAPSULE PO SCH ×3 (08:46→20:59)
[2020-10-07] MEDS: Cyanocobalamin (B-12) 1,000 MCG TABLET PO SCH (08:46)
[2020-10-07] MEDS: Aspirin Enteric Coated 81 MG Tablet PO SCH (08:46)
[2020-10-07] MEDS: Budesonide/Formoterol 80/4.5 1 PUFF INH IH SCH ×2 (09:59→21:18)
[2020-10-07] MEDS: Ertapenem 1,000 MG in 0.9 % Sodium Chloride Mini Bag 100 ML IVPB SCH (14:53)
[2020-10-07] MEDS: Melatonin 3 MG TABLET PO PRN (20:59)
[2020-10-07] MEDS: QUEtiapine Fumarate 25 MG TABLET PO SCH (20:59)
[2020-10-08] MEDS: Aspirin Enteric Coated 81 MG Tablet PO SCH (09:07)
[2020-10-08] MEDS: Cholecalciferol (D-3) 1,000 UNIT (25MCG) TABLET PO SCH (09:07)
[2020-10-08] MEDS: Lactobacillus 1 EACH CAP.SPRINK PO SCH ×2 (09:07→21:26)
[2020-10-08] MEDS: Cyanocobalamin (B-12) 1,000 MCG TABLET PO SCH (09:07)
[2020-10-08] MEDS: Apixaban 5 MG TABLET PO SCH ×2 (09:08→21:26)
[2020-10-08] MEDS: Gabapentin 100 MG CAPSULE PO SCH ×3 (09:08→21:26)
[2020-10-08] MEDS: Magnesium Oxide 400 MG TABLET PO SCH ×2 (09:08→21:26)
[2020-10-08] MEDS: Levalbuterol Neb 1.25 MG/3 ML IH PRN (09:37)
[2020-10-08] MEDS: Budesonide/Formoterol 80/4.5 1 PUFF INH IH SCH ×2 (09:38→21:42)
[2020-10-08 12:49] LABS: Adenovirus Not Detected (Not Detect); Bordetella Pertussis Not Detected (Not Detect); Chlamydophila pneumoniae Not Detected (Not Detect); Coronavirus 229E Not Detected (Not Detect); Coronavirus HKU1 Not Detected (Not Detect); Coronavirus NL63 Not Detected (Not Detect); Coronavirus OC43 Not Detected (Not Detect); Human Metapneumovirus Not Detected (Not Detect); Human Rhinovirus/Enterovirus Not Detected (Not Detect); Influenza A Subtype 2009 H1 Not Detected (Not Detect); Influenza B Not Detected (Not Detect); Mycoplasma pneumoniae Not Detected (Not Detect); Parainfluenza Virus 1 Not Detected (Not Detect); Parainfluenza Virus 2 Not Detected (Not Detect); Parainfluenza Virus 3 Not Detected (Not Detect); Parainfluenza Virus 4 Not Detected (Not Detect); Respiratory Syncytial Virus Not Detected (Not Detect)
[2020-10-08] MEDS: Ertapenem 1,000 MG in 0.9 % Sodium Chloride Mini Bag 100 ML IVPB SCH (15:00)
[2020-10-08] MEDS: QUEtiapine Fumarate 25 MG TABLET PO SCH (21:26)
[2020-10-09] MEDS: Melatonin 3 MG TABLET PO PRN ×2 (03:20→21:56)
[2020-10-09] MEDS: Budesonide/Formoterol 80/4.5 1 PUFF INH IH SCH ×2 (08:02→21:23)
[2020-10-09] MEDS: Aspirin Enteric Coated 81 MG Tablet PO SCH (08:19)
[2020-10-09] MEDS: Apixaban 5 MG TABLET PO SCH ×2 (08:19→21:56)
[2020-10-09] MEDS: Cholecalciferol (D-3) 1,000 UNIT (25MCG) TABLET PO SCH (08:19)
[2020-10-09] MEDS: Magnesium Oxide 400 MG TABLET PO SCH ×2 (08:19→21:56)
[2020-10-09] MEDS: Cyanocobalamin (B-12) 1,000 MCG TABLET PO SCH (08:20)
[2020-10-09] MEDS: Gabapentin 100 MG CAPSULE PO SCH ×3 (08:20→21:57)
[2020-10-09] MEDS: Lactobacillus 1 EACH CAP.SPRINK PO SCH ×2 (08:20→21:57)
[2020-10-09] MEDS: Ertapenem 1,000 MG in 0.9 % Sodium Chloride Mini Bag 100 ML IVPB SCH (16:04)
[2020-10-09] MEDS: QUEtiapine Fumarate 25 MG TABLET PO SCH (21:57)
[2020-10-10] MEDS: Lactobacillus 1 EACH CAP.SPRINK PO SCH ×2 (08:26→21:23)
[2020-10-10] MEDS: Apixaban 5 MG TABLET PO SCH ×2 (08:26→21:23)
[2020-10-10] MEDS: Aspirin Enteric Coated 81 MG Tablet PO SCH (08:26)
[2020-10-10] MEDS: Cholecalciferol (D-3) 1,000 UNIT (25MCG) TABLET PO SCH (08:26)
[2020-10-10] MEDS: Cyanocobalamin (B-12) 1,000 MCG TABLET PO SCH (08:26)
[2020-10-10] MEDS: Magnesium Oxide 400 MG TABLET PO SCH ×2 (08:27→21:23)
[2020-10-10] MEDS: Gabapentin 100 MG CAPSULE PO SCH ×3 (08:27→21:23)
[2020-10-10] MEDS: Budesonide/Formoterol 80/4.5 1 PUFF INH IH SCH ×2 (09:03→22:11)
[2020-10-10] MEDS: Ertapenem 1,000 MG in 0.9 % Sodium Chloride Mini Bag 100 ML IVPB SCH (14:33)
[2020-10-10] MEDS: Melatonin 3 MG TABLET PO PRN (21:23)
[2020-10-10] MEDS: QUEtiapine Fumarate 25 MG TABLET PO SCH (21:23)
[2020-10-11] MEDS: Magnesium Oxide 400 MG TABLET PO SCH ×2 (08:38→21:02)
[2020-10-11] MEDS: Cholecalciferol (D-3) 1,000 UNIT (25MCG) TABLET PO SCH (08:38)
[2020-10-11] MEDS: Lactobacillus 1 EACH CAP.SPRINK PO SCH ×2 (08:38→20:56)
[2020-10-11] MEDS: Apixaban 5 MG TABLET PO SCH ×2 (08:38→20:56)
[2020-10-11] MEDS: Aspirin Enteric Coated 81 MG Tablet PO SCH (08:38)
[2020-10-11] MEDS: Cyanocobalamin (B-12) 1,000 MCG TABLET PO SCH (08:39)
[2020-10-11] MEDS: Gabapentin 100 MG CAPSULE PO SCH ×3 (08:39→20:56)
[2020-10-11] MEDS: Budesonide/Formoterol 80/4.5 1 PUFF INH IH SCH ×2 (09:47→21:29)
[2020-10-11] MEDS: Ertapenem 1,000 MG in 0.9 % Sodium Chloride Mini Bag 100 ML IVPB SCH (15:25)
[2020-10-11] MEDS: QUEtiapine Fumarate 25 MG TABLET PO SCH (20:56)
[2020-10-11] MEDS: Melatonin 3 MG TABLET PO PRN (20:57)
[2020-10-12] MEDS: Budesonide/Formoterol 80/4.5 1 PUFF INH IH SCH ×2 (08:15→22:01)
[2020-10-12] MEDS: Aspirin Enteric Coated 81 MG Tablet PO SCH (08:54)
[2020-10-12] MEDS: Apixaban 5 MG TABLET PO SCH ×2 (08:54→21:14)
[2020-10-12] MEDS: Cyanocobalamin (B-12) 1,000 MCG TABLET PO SCH (08:54)
[2020-10-12] MEDS: Gabapentin 100 MG CAPSULE PO SCH ×3 (08:54→21:13)
[2020-10-12] MEDS: Magnesium Oxide 400 MG TABLET PO SCH ×2 (08:54→21:18)
[2020-10-12] MEDS: Cholecalciferol (D-3) 1,000 UNIT (25MCG) TABLET PO SCH (08:55)
[2020-10-12] MEDS: Lactobacillus 1 EACH CAP.SPRINK PO SCH ×2 (08:55→21:13)
[2020-10-12] MEDS: Ertapenem 1,000 MG in 0.9 % Sodium Chloride Mini Bag 100 ML IVPB SCH (14:10)
[2020-10-12] MEDS: GuaiFENesin Liq 200 MG/10 ML UDC PO PRN (20:01)
[2020-10-12] MEDS: Melatonin 3 MG TABLET PO PRN (21:13)
[2020-10-12] MEDS: QUEtiapine Fumarate 25 MG TABLET PO SCH (21:14)
[2020-10-12] MEDS: Benzonatate 100 MG CAPSULE PO PRN (21:18)
[2020-10-13] MEDS: Benzonatate 100 MG CAPSULE PO PRN (08:30)
[2020-10-13] MEDS: Aspirin Enteric Coated 81 MG Tablet PO SCH (08:30)
[2020-10-13] MEDS: Lactobacillus 1 EACH CAP.SPRINK PO SCH ×2 (08:30→22:23)
[2020-10-13] MEDS: Cholecalciferol (D-3) 1,000 UNIT (25MCG) TABLET PO SCH (08:31)
[2020-10-13] MEDS: Magnesium Oxide 400 MG TABLET PO SCH ×2 (08:31→22:23)
[2020-10-13] MEDS: Cyanocobalamin (B-12) 1,000 MCG TABLET PO SCH (08:31)
[2020-10-13] MEDS: Apixaban 5 MG TABLET PO SCH ×2 (08:31→22:23)
[2020-10-13] MEDS: Gabapentin 100 MG CAPSULE PO SCH ×3 (08:31→22:23)
[2020-10-13] MEDS: Budesonide/Formoterol 80/4.5 1 PUFF INH IH SCH ×2 (09:28→21:27)
[2020-10-13] MEDS ORDERED: Albuterol 2.5 MG/3 ML NEBULIZER IH ONE (10:12)
[2020-10-13] MEDS: Levalbuterol Neb 1.25 MG/3 ML IH PRN ×2 (10:17→15:44)
[2020-10-13] MEDS: Ertapenem 1,000 MG in 0.9 % Sodium Chloride Mini Bag 100 ML IVPB SCH ×2 (16:34→17:27)
[2020-10-13] MEDS: Melatonin 3 MG TABLET PO PRN (22:23)
[2020-10-13] MEDS: GuaiFENesin Liq 200 MG/10 ML UDC PO PRN (22:23)
[2020-10-13] MEDS: QUEtiapine Fumarate 25 MG TABLET PO SCH (22:23)
[2020-10-14] MEDS: Aspirin Enteric Coated 81 MG Tablet PO SCH (08:14)
[2020-10-14] MEDS: Apixaban 5 MG TABLET PO SCH ×2 (08:14→21:08)
[2020-10-14] MEDS: GuaiFENesin Liq 200 MG/10 ML UDC PO PRN (08:15)
[2020-10-14] MEDS: Benzonatate 100 MG CAPSULE PO PRN ×2 (08:15→14:12)
[2020-10-14] MEDS: Cyanocobalamin (B-12) 1,000 MCG TABLET PO SCH (08:15)
[2020-10-14] MEDS: Cholecalciferol (D-3) 1,000 UNIT (25MCG) TABLET PO SCH (08:15)
[2020-10-14] MEDS: Lactobacillus 1 EACH CAP.SPRINK PO SCH ×2 (08:15→21:08)
[2020-10-14] MEDS: Gabapentin 100 MG CAPSULE PO SCH ×3 (08:15→21:09)
[2020-10-14] MEDS: Magnesium Oxide 400 MG TABLET PO SCH ×2 (08:15→21:09)
[2020-10-14] MEDS: Budesonide/Formoterol 80/4.5 1 PUFF INH IH SCH ×2 (08:51→21:18)
[2020-10-14] MEDS: Ertapenem 1,000 MG in 0.9 % Sodium Chloride Mini Bag 100 ML IVPB SCH (15:26)
[2020-10-14] MEDS: QUEtiapine Fumarate 25 MG TABLET PO SCH (21:09)
[2020-10-15] MEDS: Melatonin 3 MG TABLET PO PRN ×2 (00:16→22:12)
[2020-10-15] MEDS: Aspirin Enteric Coated 81 MG Tablet PO SCH (08:34)
[2020-10-15] MEDS: Apixaban 5 MG TABLET PO SCH ×2 (08:34→22:11)
[2020-10-15] MEDS: Lactobacillus 1 EACH CAP.SPRINK PO SCH ×2 (08:34→22:11)
[2020-10-15] MEDS: Cholecalciferol (D-3) 1,000 UNIT (25MCG) TABLET PO SCH (08:35)
[2020-10-15] MEDS: Gabapentin 100 MG CAPSULE PO SCH ×3 (08:35→22:11)
[2020-10-15] MEDS: Magnesium Oxide 400 MG TABLET PO SCH ×2 (08:35→22:11)
[2020-10-15] MEDS: Cyanocobalamin (B-12) 1,000 MCG TABLET PO SCH (08:35)
[2020-10-15] MEDS: Budesonide/Formoterol 80/4.5 1 PUFF INH IH SCH ×2 (09:59→22:33)
[2020-10-15] MEDS: Ertapenem 1,000 MG in 0.9 % Sodium Chloride Mini Bag 100 ML IVPB SCH (16:29)
[2020-10-15] MEDS: QUEtiapine Fumarate 25 MG TABLET PO SCH (22:12)
[2020-10-16] MEDS: Lactobacillus 1 EACH CAP.SPRINK PO SCH ×2 (07:54→21:20)
[2020-10-16] MEDS: Cholecalciferol (D-3) 1,000 UNIT (25MCG) TABLET PO SCH (07:54)
[2020-10-16] MEDS: GuaiFENesin Liq 200 MG/10 ML UDC PO PRN (07:54)
[2020-10-16] MEDS: Gabapentin 100 MG CAPSULE PO SCH ×3 (07:54→21:21)
[2020-10-16] MEDS: Aspirin Enteric Coated 81 MG Tablet PO SCH (07:54)
[2020-10-16] MEDS: Cyanocobalamin (B-12) 1,000 MCG TABLET PO SCH (07:55)
[2020-10-16] MEDS: Benzonatate 100 MG CAPSULE PO PRN (07:55)
[2020-10-16] MEDS: Magnesium Oxide 400 MG TABLET PO SCH ×2 (07:56→21:20)
[2020-10-16] MEDS: Apixaban 5 MG TABLET PO SCH ×2 (07:56→21:20)
[2020-10-16] MEDS: Budesonide/Formoterol 80/4.5 1 PUFF INH IH SCH ×2 (10:08→22:42)
[2020-10-16 14:38] LABS: Basophils % 0.4 %; Eosinophils # 0.4 K/mcL (0.0-0.6); Eosinophils % 5.5 %; Hematocrit 30.3 % (37.5-50.1); Hemoglobin 9.5 g/dL (12.9-16.9); Immature Granulocytes % 0.4 % (0-4); Lymphocytes % 42.9 %; Mean Corpuscular HGB Conc 31.4 g/dL (31.6-35.5); Mean Corpuscular Volume 92.4 fL (83.0-100.0); Mean Platelet Volume 9.7 fL (9.4-12.4); Monocytes # 0.4 K/mcL (0.0-1.3); Monocytes % 6.1 %; Neutrophils # 3.2 K/mcL (1.6-8.9); Platelet Count 221 K/mcL (140-400); Red Blood Count 3.28 M/mcL (4.19-5.50); Red Cell Distribution Width 15.7 % (11.5-14.5); Segmented Neutrophils % 44.7 %; White Blood Count 7.1 K/mcL (4.3-11.1)
[2020-10-16 14:51] LABS: Albumin 2.9 g/dL (3.5-5.7); Albumin/Globulin Ratio 0.7 (1.1-2.2); Bilirubin,Total 0.3 mg/dL (0.3-1.0); Calcium 8.9 mg/dL (8.6-10.3); Globulin 3.9 g/dL (2.4-3.5); Potassium 4.6 mEq/L (3.5-5.1); Total Protein 6.8 g/dL (6.4-8.9)
[2020-10-16] MEDS: Ertapenem 1,000 MG in 0.9 % Sodium Chloride Mini Bag 100 ML IVPB SCH (17:07)
[2020-10-16] MEDS: QUEtiapine Fumarate 25 MG TABLET PO SCH (21:20)
[2020-10-16] MEDS: Melatonin 3 MG TABLET PO PRN (21:25)
[2020-10-17] MEDS: Lactobacillus 1 EACH CAP.SPRINK PO SCH ×2 (07:49→21:48)
[2020-10-17] MEDS: Benzonatate 100 MG CAPSULE PO PRN (07:49)
[2020-10-17] MEDS: Cholecalciferol (D-3) 1,000 UNIT (25MCG) TABLET PO SCH (07:49)
[2020-10-17] MEDS: Magnesium Oxide 400 MG TABLET PO SCH ×2 (07:49→21:48)
[2020-10-17] MEDS: Apixaban 5 MG TABLET PO SCH ×2 (07:49→21:48)
[2020-10-17] MEDS: Cyanocobalamin (B-12) 1,000 MCG TABLET PO SCH (07:49)
[2020-10-17] MEDS: Gabapentin 100 MG CAPSULE PO SCH ×3 (07:49→21:48)
[2020-10-17] MEDS: Aspirin Enteric Coated 81 MG Tablet PO SCH (07:49)
[2020-10-17] MEDS: Budesonide/Formoterol 80/4.5 1 PUFF INH IH SCH ×2 (09:57→22:58)
[2020-10-17] MEDS: Ertapenem 1,000 MG in 0.9 % Sodium Chloride Mini Bag 100 ML IVPB SCH (16:14)
[2020-10-17] MEDS: QUEtiapine Fumarate 25 MG TABLET PO SCH (21:48)
[2020-10-17] MEDS: Melatonin 3 MG TABLET PO PRN (21:48)
[2020-10-18] MEDS: Aspirin Enteric Coated 81 MG Tablet PO SCH (08:41)
[2020-10-18] MEDS: Magnesium Oxide 400 MG TABLET PO SCH ×2 (08:42→21:23)
[2020-10-18] MEDS: Gabapentin 100 MG CAPSULE PO SCH ×3 (08:42→21:23)
[2020-10-18] MEDS: Lactobacillus 1 EACH CAP.SPRINK PO SCH ×2 (08:42→21:23)
[2020-10-18] MEDS: Cyanocobalamin (B-12) 1,000 MCG TABLET PO SCH (08:42)
[2020-10-18] MEDS: Apixaban 5 MG TABLET PO SCH ×2 (08:42→21:23)
[2020-10-18] MEDS: Cholecalciferol (D-3) 1,000 UNIT (25MCG) TABLET PO SCH (08:43)
[2020-10-18] MEDS: Budesonide/Formoterol 80/4.5 1 PUFF INH IH SCH ×2 (09:23→22:30)
[2020-10-18] MEDS: Ertapenem 1,000 MG in 0.9 % Sodium Chloride Mini Bag 100 ML IVPB SCH (17:12)
[2020-10-18] MEDS: QUEtiapine Fumarate 25 MG TABLET PO SCH (21:23)
[2020-10-18] MEDS: Melatonin 3 MG TABLET PO PRN (22:58)
[2020-10-19] MEDS: Budesonide/Formoterol 80/4.5 1 PUFF INH IH SCH ×2 (09:14→21:36)
[2020-10-19] MEDS: Cholecalciferol (D-3) 1,000 UNIT (25MCG) TABLET PO SCH (10:18)
[2020-10-19] MEDS: Aspirin Enteric Coated 81 MG Tablet PO SCH (10:18)
[2020-10-19] MEDS: Apixaban 5 MG TABLET PO SCH ×2 (10:18→21:11)
[2020-10-19] MEDS: Lactobacillus 1 EACH CAP.SPRINK PO SCH ×2 (10:18→21:10)
[2020-10-19] MEDS: Gabapentin 100 MG CAPSULE PO SCH ×3 (10:19→21:11)
[2020-10-19] MEDS: Magnesium Oxide 400 MG TABLET PO SCH ×2 (10:19→21:10)
[2020-10-19] MEDS: Cyanocobalamin (B-12) 1,000 MCG TABLET PO SCH (10:19)
[2020-10-19] MEDS: Ertapenem 1,000 MG in 0.9 % Sodium Chloride Mini Bag 100 ML IVPB SCH (18:48)
[2020-10-19] MEDS: QUEtiapine Fumarate 25 MG TABLET PO SCH (21:11)
[2020-10-19] MEDS: Melatonin 3 MG TABLET PO PRN (21:11)
[2020-10-20] MEDS: Lactobacillus 1 EACH CAP.SPRINK PO SCH ×2 (09:10→20:39)
[2020-10-20] MEDS: Aspirin Enteric Coated 81 MG Tablet PO SCH (09:10)
[2020-10-20] MEDS: Apixaban 5 MG TABLET PO SCH ×2 (09:10→20:40)
[2020-10-20] MEDS: Cholecalciferol (D-3) 1,000 UNIT (25MCG) TABLET PO SCH (09:10)
[2020-10-20] MEDS: Gabapentin 100 MG CAPSULE PO SCH ×3 (09:10→20:40)
[2020-10-20] MEDS: Magnesium Oxide 400 MG TABLET PO SCH ×2 (09:10→20:40)
[2020-10-20] MEDS: Cyanocobalamin (B-12) 1,000 MCG TABLET PO SCH (09:10)
[2020-10-20] MEDS: Budesonide/Formoterol 80/4.5 1 PUFF INH IH SCH ×2 (10:33→20:56)
[2020-10-20] MEDS: Ertapenem 1,000 MG in 0.9 % Sodium Chloride Mini Bag 100 ML IVPB SCH (15:44)
[2020-10-20] MEDS: QUEtiapine Fumarate 25 MG TABLET PO SCH (20:40)
[2020-10-20] MEDS: Melatonin 3 MG TABLET PO PRN (22:25)
[2020-10-21 08:17] LABS: Calcium 9.3 mg/dL (8.6-10.3); Potassium 4.6 mEq/L (3.5-5.1)
[2020-10-21 09:12] LABS: Basophils % 0.6 %; Eosinophils # 0.5 K/mcL (0.0-0.6); Eosinophils % 6.4 %; Hematocrit 30.3 % (37.5-50.1); Hemoglobin 9.7 g/dL (12.9-16.9); Immature Granulocytes % 0.3 % (0-4); Lymphocytes # 3.1 K/mcL (0.6-4.6); Lymphocytes % 43.4 %; Mean Corpuscular Hemoglobin 28.9 pg (28.0-33.3); Mean Corpuscular Volume 90.2 fL (83.0-100.0); Mean Platelet Volume 10.9 fL (9.4-12.4); Monocytes # 0.5 K/mcL (0.0-1.3); Monocytes % 6.3 %; Neutrophils # 3.1 K/mcL (1.6-8.9); Platelet Count 212 K/mcL (140-400); Red Blood Count 3.36 M/mcL (4.19-5.50); Red Cell Distribution Width 15.5 % (11.5-14.5); White Blood Count 7.2 K/mcL (4.3-11.1)
[2020-10-21] MEDS: Ondansetron ODT 4 MG TAB.RAPDIS SL PRN (09:42)
[2020-10-21] MEDS: Aspirin Enteric Coated 81 MG Tablet PO SCH (09:44)
[2020-10-21] MEDS: Cholecalciferol (D-3) 1,000 UNIT (25MCG) TABLET PO SCH (09:44)
[2020-10-21] MEDS: Cyanocobalamin (B-12) 1,000 MCG TABLET PO SCH (09:44)
[2020-10-21] MEDS: Apixaban 5 MG TABLET PO SCH ×2 (09:44→19:29)
[2020-10-21] MEDS: Magnesium Oxide 400 MG TABLET PO SCH ×2 (09:44→19:30)
[2020-10-21] MEDS: Gabapentin 100 MG CAPSULE PO SCH ×3 (09:44→19:30)
[2020-10-21] MEDS: Lactobacillus 1 EACH CAP.SPRINK PO SCH ×2 (09:44→19:30)
[2020-10-21] MEDS: Budesonide/Formoterol 80/4.5 1 PUFF INH IH SCH ×2 (10:44→21:13)
[2020-10-21] MEDS: Ertapenem 1,000 MG in 0.9 % Sodium Chloride Mini Bag 100 ML IVPB SCH (16:24)
[2020-10-21] MEDS: QUEtiapine Fumarate 25 MG TABLET PO SCH (19:29)
[2020-10-22] MEDS: Lactobacillus 1 EACH CAP.SPRINK PO SCH ×2 (08:35→20:01)
[2020-10-22] MEDS: Magnesium Oxide 400 MG TABLET PO SCH ×2 (08:35→20:02)
[2020-10-22] MEDS: Cholecalciferol (D-3) 1,000 UNIT (25MCG) TABLET PO SCH (08:36)
[2020-10-22] MEDS: Cyanocobalamin (B-12) 1,000 MCG TABLET PO SCH (08:36)
[2020-10-22] MEDS: Apixaban 5 MG TABLET PO SCH ×2 (08:36→20:01)
[2020-10-22] MEDS: Gabapentin 100 MG CAPSULE PO SCH ×3 (08:36→20:02)
[2020-10-22] MEDS: Aspirin Enteric Coated 81 MG Tablet PO SCH (08:36)
[2020-10-22] MEDS: Budesonide/Formoterol 80/4.5 1 PUFF INH IH SCH ×2 (08:47→22:08)
[2020-10-22] MEDS: Ertapenem 1,000 MG in 0.9 % Sodium Chloride Mini Bag 100 ML IVPB SCH (16:18)
[2020-10-22] MEDS: QUEtiapine Fumarate 25 MG TABLET PO SCH (20:00)
[2020-10-22] MEDS: Melatonin 3 MG TABLET PO PRN (23:17)
[2020-10-23] MEDS: Budesonide/Formoterol 80/4.5 1 PUFF INH IH SCH ×2 (08:59→21:09)
[2020-10-23] MEDS: Gabapentin 100 MG CAPSULE PO SCH ×3 (09:16→22:09)
[2020-10-23] MEDS: Cyanocobalamin (B-12) 1,000 MCG TABLET PO SCH (09:16)
[2020-10-23] MEDS: Magnesium Oxide 400 MG TABLET PO SCH ×2 (09:16→22:08)
[2020-10-23] MEDS: Cholecalciferol (D-3) 1,000 UNIT (25MCG) TABLET PO SCH (09:16)
[2020-10-23] MEDS: Aspirin Enteric Coated 81 MG Tablet PO SCH (09:16)
[2020-10-23] MEDS: Lactobacillus 1 EACH CAP.SPRINK PO SCH ×2 (09:17→22:08)
[2020-10-23] MEDS: Apixaban 5 MG TABLET PO SCH ×2 (09:17→22:08)
[2020-10-23] MEDS: Ertapenem 1,000 MG in 0.9 % Sodium Chloride Mini Bag 100 ML IVPB SCH (16:21)
[2020-10-23] MEDS: QUEtiapine Fumarate 25 MG TABLET PO SCH (22:08)
[2020-10-23] MEDS: Melatonin 3 MG TABLET PO PRN (22:09)
[2020-10-24 09:04] LABS: Basophils % 0.4 %; Eosinophils # 0.6 K/mcL (0.0-0.6); Hematocrit 31.3 % (37.5-50.1); Hemoglobin 10.1 g/dL (12.9-16.9); Immature Granulocytes % 0.4 % (0-4); Lymphocytes # 2.9 K/mcL (0.6-4.6); Lymphocytes % 40.9 %; Mean Corpuscular HGB Conc 32.3 g/dL (31.6-35.5); Mean Corpuscular Hemoglobin 29.5 pg (28.0-33.3); Mean Corpuscular Volume 91.5 fL (83.0-100.0); Mean Platelet Volume 9.9 fL (9.4-12.4); Monocytes # 0.5 K/mcL (0.0-1.3); Monocytes % 6.8 %; Platelet Count 183 K/mcL (140-400); Red Blood Count 3.42 M/mcL (4.19-5.50); Red Cell Distribution Width 15.5 % (11.5-14.5); Segmented Neutrophils % 42.5 %
[2020-10-24] MEDS: Magnesium Oxide 400 MG TABLET PO SCH ×2 (09:12→22:27)
[2020-10-24] MEDS: Cyanocobalamin (B-12) 1,000 MCG TABLET PO SCH (09:12)
[2020-10-24] MEDS: Apixaban 5 MG TABLET PO SCH ×2 (09:12→22:27)
[2020-10-24] MEDS: Lactobacillus 1 EACH CAP.SPRINK PO SCH ×2 (09:13→22:27)
[2020-10-24] MEDS: Aspirin Enteric Coated 81 MG Tablet PO SCH (09:13)
[2020-10-24] MEDS: Cholecalciferol (D-3) 1,000 UNIT (25MCG) TABLET PO SCH (09:13)
[2020-10-24] MEDS: Gabapentin 100 MG CAPSULE PO SCH ×3 (09:13→22:27)
[2020-10-24 09:19] LABS: Calcium 9.1 mg/dL (8.6-10.3); Potassium 4.8 mEq/L (3.5-5.1)
[2020-10-24] MEDS: Budesonide/Formoterol 80/4.5 1 PUFF INH IH SCH ×2 (10:06→21:05)
[2020-10-24] MEDS: Ertapenem 1,000 MG in 0.9 % Sodium Chloride Mini Bag 100 ML IVPB SCH (15:35)
[2020-10-24] MEDS: Melatonin 3 MG TABLET PO PRN (22:26)
[2020-10-24] MEDS: QUEtiapine Fumarate 25 MG TABLET PO SCH (22:27)
[2020-10-25] MEDS: Budesonide/Formoterol 80/4.5 1 PUFF INH IH SCH ×2 (09:02→20:27)
[2020-10-25] MEDS: Cyanocobalamin (B-12) 1,000 MCG TABLET PO SCH (10:11)
[2020-10-25] MEDS: Apixaban 5 MG TABLET PO SCH ×2 (10:11→22:21)
[2020-10-25] MEDS: Aspirin Enteric Coated 81 MG Tablet PO SCH (10:12)
[2020-10-25] MEDS: Gabapentin 100 MG CAPSULE PO SCH ×3 (10:12→22:21)
[2020-10-25] MEDS: Lactobacillus 1 EACH CAP.SPRINK PO SCH ×2 (10:12→22:21)
[2020-10-25] MEDS: Magnesium Oxide 400 MG TABLET PO SCH ×2 (10:13→22:21)
[2020-10-25] MEDS: Cholecalciferol (D-3) 1,000 UNIT (25MCG) TABLET PO SCH (10:13)
[2020-10-25] MEDS: Colchicine 0.6 MG TABLET PO SCH ×2 (12:51→22:22)
[2020-10-25] MEDS: Ertapenem 1,000 MG in 0.9 % Sodium Chloride Mini Bag 100 ML IVPB SCH (15:56)
[2020-10-25] MEDS: Melatonin 3 MG TABLET PO PRN (22:21)
[2020-10-25] MEDS: QUEtiapine Fumarate 25 MG TABLET PO SCH (22:21)
[2020-10-26] MEDS: Cholecalciferol (D-3) 1,000 UNIT (25MCG) TABLET PO SCH (09:37)
[2020-10-26] MEDS: Apixaban 5 MG TABLET PO SCH ×2 (09:37→21:25)
[2020-10-26] MEDS: Gabapentin 100 MG CAPSULE PO SCH ×3 (09:37→21:26)
[2020-10-26] MEDS: Lactobacillus 1 EACH CAP.SPRINK PO SCH ×2 (09:37→21:25)
[2020-10-26] MEDS: Colchicine 0.6 MG TABLET PO SCH ×2 (09:37→21:26)
[2020-10-26] MEDS: Aspirin Enteric Coated 81 MG Tablet PO SCH (09:37)
[2020-10-26] MEDS: Cyanocobalamin (B-12) 1,000 MCG TABLET PO SCH (09:38)
[2020-10-26] MEDS: Magnesium Oxide 400 MG TABLET PO SCH ×2 (09:38→21:26)
[2020-10-26] MEDS: Budesonide/Formoterol 80/4.5 1 PUFF INH IH SCH ×2 (10:45→22:52)
[2020-10-26] MEDS: Ertapenem 1,000 MG in 0.9 % Sodium Chloride Mini Bag 100 ML IVPB SCH (16:17)
[2020-10-26] MEDS: Melatonin 3 MG TABLET PO PRN (21:25)
[2020-10-26] MEDS: QUEtiapine Fumarate 25 MG TABLET PO SCH (21:26)
[2020-10-27] MEDS: Colchicine 0.6 MG TABLET PO SCH ×2 (08:16→20:46)
[2020-10-27] MEDS: Gabapentin 100 MG CAPSULE PO SCH ×3 (08:16→20:46)
[2020-10-27] MEDS: Lactobacillus 1 EACH CAP.SPRINK PO SCH ×2 (08:16→20:46)
[2020-10-27] MEDS: Magnesium Oxide 400 MG TABLET PO SCH ×2 (08:16→20:46)
[2020-10-27] MEDS: Apixaban 5 MG TABLET PO SCH ×2 (08:17→20:46)
[2020-10-27] MEDS: Cholecalciferol (D-3) 1,000 UNIT (25MCG) TABLET PO SCH (08:17)
[2020-10-27] MEDS: Cyanocobalamin (B-12) 1,000 MCG TABLET PO SCH (08:17)
[2020-10-27] MEDS: Aspirin Enteric Coated 81 MG Tablet PO SCH (08:18)
[2020-10-27] MEDS: Budesonide/Formoterol 80/4.5 1 PUFF INH IH SCH ×2 (09:29→21:47)
[2020-10-27] MEDS ORDERED: traZODone 50 MG TABLET PO PRN (13:43)
[2020-10-27] MEDS: Melatonin 3 MG TABLET PO PRN (20:47)
[2020-10-28 06:58] VITALS: BP 123/76
[2020-10-28] MEDS: Budesonide/Formoterol 80/4.5 1 PUFF INH IH SCH (09:11)
[2020-10-28] MEDS: Magnesium Oxide 400 MG TABLET PO SCH (10:27)
[2020-10-28] MEDS: Cyanocobalamin (B-12) 1,000 MCG TABLET PO SCH (10:27)
[2020-10-28] MEDS: Gabapentin 100 MG CAPSULE PO SCH (10:27)
[2020-10-28] MEDS: Cholecalciferol (D-3) 1,000 UNIT (25MCG) TABLET PO SCH (10:27)
[2020-10-28] MEDS: Lactobacillus 1 EACH CAP.SPRINK PO SCH (10:27)
[2020-10-28] MEDS: Apixaban 5 MG TABLET PO SCH (10:27)
[2020-10-28] MEDS: Colchicine 0.6 MG TABLET PO SCH (10:27)
[2020-10-28] MEDS: Aspirin Enteric Coated 81 MG Tablet PO SCH (10:30)
== END 2020-10-28 14:30 | DRG 945 ==
LOC: INPPIK 19:39
PROVIDERS: ADMIT Family Medicine; ATTEND Family Medicine